=== PATIENT | female | born 1960 | race Caucasian/White ===

== ENCOUNTER 2023-11-02 05:49 | Inpatient (IN) | payer BC ==
[2023-10-27 09:24] LABS: Transitional Epithelial <5 /HPF (None Seen); Urine Bacteria None Seen /HPF (<20); Urine Bilirubin NEGATIVE (Negative); Urine Blood Negative (Negative); Urine Clarity Clear (Clear); Urine Color Yellow (Yellow); Urine Glucose NEGATIVE (Negative); Urine Mucus Slight /HPF (None Seen); Urine Protein TRACE (Negative); Urine RBC <5 /HPF (None Seen); Urine Urobilinogen 1+ (Normal)
[2023-10-27 09:24] LABS: Absolute Lymphocytes (CBC) 1.2 K/uL (0.7-4.9); Hematocrit 41.4 % (36.0-45.0); Lymphocytes % 22.1 % (15.3-44.8); MCV 92.8 fL (80-100); MPV 8.6 fL (7.6-11.3); Platelets 308 thou/uL (152-406); RBC Red Blood Cell Count 4.46 M/uL (3.86-4.86)
--- NOTE | 2023-10-27 09:33 | RAD REPORT ---
EXAM DESCRIPTION: RAD - Chest Pa And Lat (2 Views) - 10/27/2023 9:22 am CLINICAL HISTORY: pre op for surgery. Hypertension COMPARISON: CHEST SINGLE VIEW dated 09/13/2015; CHEST PA AND LAT 2 VIEW dated 07/17/2011; CHEST SINGLE VIEW dated 07/13/2010 TECHNIQUE: PA and lateral views of the chest were obtained. FINDINGS: The lungs are clear. Heart size is normal and central vasculature is within normal limits. No pleural effusion or pneumothorax seen. No acute bony finding noted. IMPRESSION: No acute cardiopulmonary process.
[2023-10-27 09:35] LABS: Protime INR 1.02
[2023-10-27 09:36] LABS: Albumin 3.4 g/dL (3.4-5.0); Bilirubin Total 0.5 mg/dL (0.2-1.0); Potassium 4.5 mEq/L (3.5-5.1); Protein, Total 6.8 g/dL (6.4-8.2)
--- NOTE | 2023-11-01 17:14 | EKG ---
Test Date: 2023-10-27 Test Time: 10:08:35 Forestry Extension Specialist: ELENITA MEASUREMENT RESULTS: Intervals: Rate: 57 AZ: 120 QRSD: 84 QT: 400 QTc: 389 [place]: P: 57 AZ: 120 QRS: 40 T: 25 INTERPRETIVE STATEMENTS: Sinus bradycardia Otherwise normal ECG Compared to ECG 07/09/2016 10:51:11 Sinus rhythm no longer present Electronically Signed On 11-01-23 16:58:03 ACID WASHER OPERATOR by Pablo Garner
[2023-11-02] MEDS ORDERED: CEFAZOLIN SODIUM 2 GM/VIAL ONE (06:08)
[2023-11-02] MEDS ORDERED: Oxycodone HCl/Acetaminophen 5/325 MG TAB ONE (06:09)
[2023-11-02] MEDS ORDERED: GABAPENTIN 100 MG CAP ONE (06:09)
[2023-11-02] MEDS ORDERED: ACETAMINOPHEN 500 MG TAB ONE (06:10)
[2023-11-02] MEDS ORDERED: Ringers Lactate 1,000 ML IV ONE ×3 (06:12→08:44)
[2023-11-02] MEDS ORDERED: CELECOXIB 100 MG CAPSULE ONE (06:12)
[2023-11-02] MEDS ORDERED: BUPIVACAINE 0.75% (PF) 2 ML SP ONE (06:31)
[2023-11-02] MEDS ORDERED: LIDOCAINE 2% MPF 5 ML VIAL ONE (06:42)
[2023-11-02] MEDS ORDERED: EPINEPHRINE 1 MG/ML VIAL ONE ×2 (06:42→08:34)
[2023-11-02] MEDS ORDERED: LIDOCAINE 1% MPF 5 ML VIAL ONE (06:42)
[2023-11-02] MEDS ORDERED: propofoL 200 MG/20 ML VIAL IV ONE ×2 (06:43→08:39)
[2023-11-02] MEDS ORDERED: FENTANYL CITR 100 MCG/2 ML ONE (06:43)
[2023-11-02] MEDS ORDERED: TRANEXAMIC ACID 1,000 MG/10 ML VIAL IV ONE (06:44)
[2023-11-02] MEDS ORDERED: MIDAZOLAM HCL 2 MG/2 ML INJ ONE (06:44)
[2023-11-02] MEDS ORDERED: ONDANSETRON 4 MG/2 ML VIAL ONE (06:59)
[2023-11-02] MEDS ORDERED: NS 0.9% VIAL 10 ML ONE ×3 (07:58→08:55)
[2023-11-02] MEDS ORDERED: dexAMETHasone 10 MG/ML VIAL ONE (08:34)
[2023-11-02] MEDS ORDERED: ROPIVACAINE HCL 20 ML ONE (08:44)
--- NOTE | 2023-11-02 09:09 | RAD REPORT ---
EXAM DESCRIPTION: RAD - Hip Left 1 View - 11/02/2023 8:56 am CLINICAL HISTORY: TOTAL HIP REPLACEMENT COMPARISON: Hip Left 2 View dated 02/23/2023; Hip Left 2 View dated 06/02/2018 FINDINGS/IMPRESSION: Single intraoperative left hip radiograph for a left hip replacement. The aceta bular component is intact. The femoral component is intact.
[2023-11-02] MEDS ORDERED: DOCUSATE NA 100 MG CAP PO PRN (09:24)
--- NOTE | 2023-11-02 09:30 | P.BOP ---
Preoperative diagnosis: left hip arthritis Postoperative diagnosis: same Primary procedure: left total hip arthoplasty Estimated blood loss: 100ccs Anesthesia: General Transferred to: Recovery Room Condition: Good
[2023-11-02 10:10] LABS: Hematocrit 34.7 % (36.0-45.0)
--- NOTE | 2023-11-02 10:15 | OP ---
Date of Procedure: 11/02/2023 Surgeon: Javy Fisher MD Preoperative Diagnosis: Left hip arthritis. Postoperative Diagnosis: Left hip arthritis. Procedure: Left total hip arthroplasty using the Albert system. Estimated Blood Loss: 100 cc. Complications: There were no complications. Indications For Operation: Ms. Gregory is a 63-year-old female, who unfortunately suffered with pa in and immobility of her right hip for some time. This persisted despite conservative care including assistive devices, medications, and risks, benefits, and alternatives of total hip arthroplasty have been discussed with her. She states she understands everything as presented as well as those risks which were outlined in the consent form as well as others which have been discussed and agrees to pro ceed. Description Of Procedure: The patient was taken to the operating room. She was given spinal by Mynor brink. Urinary catheter was placed. She was then rolled right side down with an axillary roll and appropriately positioned using hip positioners. After this, the left lower extremity was then preppe d and draped in usual sterile fashion for procedure. Following this, a standard posterior line incis ion was taken down carefully through skin and soft tissues. Meticulous hemostasis being maintained u sing the Bovie electrocautery. This leads down to the fascia. A small stab wound was made in the fa scia with palpation of the gluteal tendon to ensure that we were in the correct position. This was c arried up gently to near the tip of the greater trochanter, where the gluteus veronica muscles were en countered. These were then spread using finger pressure. The sciatic nerve was then palpated and pr otected as the Charnley was then placed. A hip was placed in the abductors and the external rotators and capsule were then taken down and tagged for later repair. The hip was found to have quite a bit of osteophytes and some of these were trimmed as the hip was dislocated. It has severe arthritic ch anges of the femoral head as well as reciprocal changes of the acetabulum. A standard neck cut or sl ightly lower than standard neck cut was then made and the head was then sized using ring gauges. Aft er this, attention was then turned to the acetabulum, where some of the osteophytes were removed as w ell as the labrum and any soft tissues from the acetabulum was then sequentially reamed to a size 49, where it appeared to have good bleeding bone on inspection. After this, the size [address] aced in standard fashion. It appeared to have excellent fixation of the bone with no sign of failure to adhere. Following this, attention was then turned to the femur and the canal finding reamer was placed, this followed by broaching to a size 6, and x-rays taken at this point, which demonstrates th e cup appears to be in good position and appears to be appropriately sized stem. After this, the bro ach was removed. The final stem was placed. The hip was then trialed using the standard ball. It w as very stable to flexion to over 90 degrees, full adduction, internal rotation to at least 45 to 50 degrees. It does come to full extension. There was slight amount of tension with hyperextension. H owever, at this point, I feel we will move forward with this. After this, the trial ball was removed . A liner has already been placed before trialing and the final ball was then gently tapped into peter ce. It was then reduced and appears to be stable in same areas. Copious irrigation using jet lavage was used and the external rotators capsule was then repaired back to the trochanter and soft tissues via bone tunnel and soft tissue fixation. After this, it was again irrigated and the fascia was roque sed in a watertight fashion using heavy Vicryl sutures followed by irrigation followed by closure wit h Vicryl sutures followed by parker. The patient was then placed in Aquacel dressing and taken to r ecovery room in good condition. There were no complications. SE/MODL Voice ID: [id number] Report ID: [id number]
--- OUTSIDE RECORDS SUMMARY | 2023-11-02 10:29 | XMS REPORT | Continuity of Care Document ---
Author Name Unknown Address [address] [place] [address] [facility] thconnect Address [address] [facility] [place] [address] Care Team Providers Care Power Grader Operator Name Role Phone Daquan Lilly Primary Care Physician [id number] [phone] Brisa Hoang Attending Clinician Unavailable ABI CARLSON Attending Clinician Unavailable Abi Elias Attending Clinician [phone] Doctor Unassigned, [place] Attending Clinician U navailable Vik INSULATION HELPERSpencer Solomon Attending Clinician [phone] Brisa Hoang Admitting Clinician Unavailable Payers Payer Name Policy Type Policy Number Effective Date Expirati on Date Source Problems Condition Name Condition Details Condition Category Status Onset Date Resolution Date Last Treatment Date Treating Clinician Comments Source Constipati on, unspecifie d constipati on type Constipati on, unspecifie d constipati on type Problem Active [facility] Circulatio n problem Circulatio n problem Problem Active [facility] Gallstones Gallstones Problem Active C om[facility] Pure hyperchole sterolemia Pure hyperchole sterolemia Problem Active [facility] Depression with anxiety Depression with anxiety Problem Active [facility] Varicose veins of bilateral lower extremitie s with pain Varicose veins of bilateral lower extremitie s with pain Problem Active [facility] Primary osteoarthr itis involving multiple joints Primary osteoarthr itis involving multiple joints Problem Active [facility] Panic attacks Panic attacks Problem Active [facility] Hip pain, left Hip pain, left Problem Active [facility] No known active problems No known active problems Disease [facility] Allergies, Adverse Reactions, Alerts Allergy Name Allergy Type Status Severity Reaction(s) Onset Date Inactive Date Treating Clinician Comments Source red dye Adverse Reaction Active Info Not Available [facility] NO KNOWN ALLERGIE S Drug Class Active [facility] Social History Social Habit Start Date Stop Date Quantity Comments Source Tobacco use and exposure 2021-07-17 00:00:00 2021-07-17 00:00:00 Smokeless tobacco non-user [facility] Sex Assigned At 1960 00:00:00 1960 00:00:00 [facility] Smoking Status Start Date Stop Date Source Never smoked tobacco [facility] Medications Ordered Medication Name Filled Medication Name Start Date Stop Date Current Medication? Ordering Clinician Indication Dosage Frequency Signature (SIG) Comments Components Source TAKE 5 ML BY MOUTH EVERY 6 HOURS NEEDED FOR COUGH FOR UP TO 7 DAYS 2021-10 00:00: 00 No nirmatrelvi r-ritonavir (PAXLOVID, EUA,) 150 mg x 2- 100 mg tablet 05-24 00:00: 00 Yes [id number] 3{tbl} Take 3 tablets by mouth in the morning and 3 tablets in the evening. [facility] nirmatrelvi r-ritonavir (PAXLOVID, EUA,) 150 mg x 2- 100 mg tablet 05-24 00:00: 00 Yes [id number] 3{tbl} Take 3 tablets by mouth in the morning and 3 tablets in the evening. [facility] codeine-gua ifenesin 10-100 mg/5 mL oral solution 05-24 00:00: 00 06-01 04:59 :00 No [id number] 5mL Take 5 mL by mouth every 6 (six) hours as needed for Cough for up to 7 days. Indication s: acute pain [facility] mupirocin 2 % ointment 2020-10 0 00:00: 00 Yes [id number] Apply to area(s) 3 (three) times daily. [facility] mupirocin 2 % ointment 2020-10 0 00:00: 00 Yes [id number] Apply to area(s) 3 (three) times daily. [facility] mupirocin 2 % ointment 2020-10 0 00:00: 00 Yes [id number] Apply to area(s) 3 (three) times daily. [facility] cephALEXin (KEFLEX) 500 mg capsule 2020-10 0 00:00: 00 07-28 04:59 :00 No [id number] 500mg Take 1 capsule by mouth 4 (four) times daily for 10 days. [facility] Prozac Prozac 05-16 00:00: 00 Yes Na Lopez 1 capsule [facility] Sly Heart Yes Na Lopez 1 tablet with food or milk as needed [facility] Vital Signs Vital Name Observation Time Observation Value Comments S ource Systolic blood pressure 2022-05-24 14:58:00 103 mm[Hg] [facility] Diastolic blood pressure 2022-05-24 14:58:00 77 mm[Hg] [facility] Heart rate 2022-05-24 14:58:00 94 /min [facility] Body temperature 2022-05-24 14:58:00 37 Betty [facility] Respiratory rate 2022-05-24 14:58:00 16 /min [facility] Body height 2022-05-24 14:58:00 165.1 cm [facility] Body weight 2022-05-24 14:58:00 73.528 kg [facility] BMI 2022-05-24 14:58:00 26.97 kg/m2 [facility] Oxygen saturation in Arterial blood by Pulse oximetry 2022-05-24 14:58:00 99 /min [facility] Systolic blood pressure 2021-07-17 23:45:00 114 mm[Hg] [facility] Diastolic blood pressure 2021-07-17 23:45:00 78 mm[Hg] [facility] Heart rate 2021-07-17 23:45:00 78 /min [facility] Body temperature 2021-07-17 23:45:00 37.22 Betty [facility] Respiratory rate 2021-07-17 23:45:00 18 /min [facility] Body height 2021-07-17 23:45:00 165.1 cm [facility] Body weight 2021-07-17 23:45:00 72.576 kg [facility] BMI 2021-07-17 23:45:00 26.63 kg/m2 [facility] Oxygen saturation in Arterial blood by Pulse oximetry 2021-07-17 23:45:00 97 /min [facility] Respiratory Rate 2022-09-14 14:27:00 24.00 /min BP Systolic 2022-09-14 14:27:00 116 mm[Hg] BP Diastolic 2022-09-14 14:27:00 75 mm[Hg] Weight Measured 2022-09-14 14:27:00 155.80 pounds Height Measured 2022-09-14 14:27:00 65.00 inches Body Temperature 2022-09-14 14:27:00 97.60 degrees Heart Rate 2022-09-14 14:27:00 85.00 /min Procedures Procedure Date / Time Performed Performing Clinician Source POCT SARS-COV-2 ANTIGEN (BINAX NOW) 2022-05-24 14:57:00 Abi Carlson [facility] STATEMENT OF PATIENT FINANCIAL RESPONSIBILITY 2022-05-24 05:01:00 Doctor Unassigned, [place] [facility] Plan of Care Planned Activity Planned Date Details Comments Source Goal Plan of Care Note [code = 80033-4] Goal Plan of Care Note [code = 97355-0] Encounters Start Date/Time End Date/Time Encounter Type Admission Type Attending Clinicians Care Facility Care Department Encounter ID Source 2023-10-18 13:59:00 Outpatient Brisa Hoang [facility] [id number] [facility] 2023-10-13 11:24:00 Outpatient Brisa Hoang [facility] [id number] [facility] 2023-09-08 10:01:00 Outpatient Brisa Hoang [facility] [id number] [facility] 2022-09-28 08:40:07 2022-09-28 08:40:07 Outpatient [facility] [id number] Adarsh Boone 2022-09-14 14:18:09 2022-09-14 14:18:09 Outpatient [facility] [id number] Adarsh Boone 2022-09-14 00:00:00 2022-09-14 00:00:00 Outpatient Visit [id number] 2022-05-24 09:40:00 2022-05-24 10:27:48 Outpatient R ROBYN [facility] [id number] [facility] 2022-05-24 09:40:00 2022-05-24 10:27:48 Urgent Care [facility] [id number] [facility] 2022-05-24 00:00:00 2022-05-24 00:00:00 Orders Only Doctor Unassigned, [place] [facility] [id number] [facility] 2021-07-17 18:36:59 2021-07-17 19:05:29 [facility] [id number] [facility] 2021-07-17 18:40:00 2021-07-17 18:40:00 Outpatient ABI CEVALLOS [facility] [id number] [facility] 2018-06-08 08:10:00 2018-06-08 08:10:00 Outpatient [facility] [id number] [facility] 2018-06-03 08:07:00 2018-06-03 08:07:00 Outpatient [facility] [id number] [facility] 2018-05-16 10:00:00 2018-05-16 10:00:00 Outpatient [facility] [id number] [facility] Results Test Description Test Time Test Comments Results Result Co mments Source [facility]
--- NOTE | 2023-11-02 15:34 | P.CNS ---
Date of Consult: 11/02/23 Reason for Consult: medical management Chief Complaint: left hip arthritis History of Present Illness: Serafin Gregory is a 63-year-old female with past medical history of hypotension, anxiety/depression, HLD, osteoporosis who was brought into the hospital for a left total hip replacement. She underwent a Left total hip replacement today on 11/02/23. Orthopedics physician has consulted hospitalist service for medical management. Status post left total hip replacement, she has had a hypotensive episode with near syncope when standing with physical therapy around 1500 today. Blood pressure 71/54 with recheck 95/53 this is reportedly the first time for her to stand since surgery this morning. She reports being hypotensive regularly. Will give 250 mL normal saline bolus and recheck her blood pressure. Allergies red dye Allergy (Verified 10/27/23 08:51) Nausea/Vomiting Home Medications: Acetaminophen 500 mg PO QID 10/27/23 Acetaminophen with Codeine [Acetaminophen-Cod #2 Tablet] 1 each PO QID PRN 10/27/23 Alendronate Sodium 70 mg PO DAILY 10/27/23 Calcium Carbonate [Calcium] 600 mg PO BID 10/27/23 Diclofenac Na [Voltaren D.R] 75 mg PO DAILY 10/27/23 Ezetimibe 10 mg PO DAILY 10/27/23 Fluoxetine HCl [Prozac] 40 mg PO DAILY 10/27/23 Ibuprofen 200 mg PO TID 10/27/23 - Social History Alcohol use: Yes CD- Drugs: No Caffeine use: Yes Place of Residence: Home Review of Systems Musculoskeletal: Leg Pain (Left total hip replacement) Integumentary: Other (incision to left hip) Physical Examination Temp Pulse Resp BP Pulse Ox 97.8 F 54 16 95/53 L 98 11/02/23 11:53 11/02/23 11:53 11/02/23 11:53 11/02/23 11:53 11/02/23 11:53 General: Alert, In no apparent distress, Oriented x3 HEENT: Atraumatic, Normocephalic, PERRLA Neck: Supple, 2+ carotid pulse no bruit, JVD not distended Respiratory: Clear to auscultation bilaterally, Normal air movement Cardiovascular: No edema, Normal pulses, Regular rate/rhythm, Normal S1 S2 Capillary refill: <2 Seconds Gastrointestinal: Normal bowel sounds, Soft and benign, Non-distended Musculoskeletal: Tenderness (left hip), Other (dressing to left hip (C/D/I)) Neurological: Normal speech, Normal strength at 5/5 x4 extr, Normal tone Laboratory Data (last 24 hrs) 11/02/23 10:01 Hgb 12.1 Hct 34.7 L Conclusions/Impression: Assessment and plan Status post left total hip replacement Hypotensive with near syncopal episode Orthopedic surgeon managing, Dr. Fisher Pain control Physical therapy BP 71/54, recheck 95/53 250 ml normal saline bolus- continue to monitor Hypotension Anxiety/depression Osteoporosis Supportive care Continue home medication DVT PPx per orthopedics Full code LOS 2 to 3 days, per orthopedics Time Spent Managing Pts care (In Minutes): 35
[2023-11-02 15:59] VITALS: BMI 26.1
[2023-11-02] MEDS: CEFAZOLIN 1 GM in NA CHLORIDE 0.9% 50 ML IVPB SCH (17:44)
[2023-11-02] MEDS: HYDROCODONE/APAP 7.5/325 MG TAB PO PRN (20:55)
[2023-11-03] MEDS: CEFAZOLIN 1 GM in NA CHLORIDE 0.9% 50 ML IVPB SCH ×2 (00:41→08:36)
[2023-11-03] MEDS: NA CHLORIDE 0.9% 250 ML IV PRN ×2 (04:27→05:03)
[2023-11-03 05:53] LABS: Hematocrit 31.7 % (36.0-45.0)
[2023-11-03] MEDS: ENOXAPARIN 40 MG/0.4 ML SQ SCH (08:36)
[2023-11-03] MEDS: HYDROCODONE/APAP 7.5/325 MG TAB PO PRN ×2 (08:50→14:53)
[2023-11-03 08:51] LABS: Potassium 4.3 mEq/L (3.5-5.1)
[2023-11-03] MEDS ORDERED: NA CHLORIDE 0.9% 1,000 ML IV ONE (08:52)
[2023-11-03] MEDS: NA CHLORIDE 0.9% 1,000 ML IV SCH ×2 (09:49→20:19)
--- NOTE | 2023-11-03 11:38 | P.PN ---
Date of Service: 11/03/23 Subjective She is experiencing continued orthostatic hypotension. Giving IV fluids She reports asymptomatic hypotension regularly, the symptom of dizziness is new We will continue to monitor ROS 10 point ROS as noted above, otherwise negative Physical Exam General: AAOx3, NAD HEENT: Atraumatic, Normocephalic, PERRLA Neck: Supple, 2+ carotid pulse no bruit, JVD not distended Respiratory: Clear to auscultation bilaterally, Normal air movement, symmetrical chest wall movement Cardiovascular: No edema, Normal pulses, Regular rate/rhythm, Normal S1 S2, no murmur appreciated Capillary refill: <2 Seconds Gastrointestinal: Normal bowel sounds, Soft and benign, Non-distended, nontender Musculoskeletal: Tenderness (left hip), Other (dressing to left hip (C/D/I)) Neurological: Normal speech, Normal strength at 5/5 x4 extr, Normal tone Vitals Reviewed Problem list Status post left total hip replacement Hypotensive with near syncopal episode Hypotension Anxiety/depression Osteoporosis Assessment and Plan Status post left total hip replacement Hypotensive with near syncopal episode Orthopedic surgeon managing, Dr. Fisher- cleared for discharge when hemodynamically stable Discharge instructions: -Ok to d/c if ok with hospitalist,PT, social work. -Posterior hip precautions. WBAT with walker. Has rx sent electronically for pain and anticoagulation. F/U 2 weeks or sooner with problems. Pain control Physical therapy BP 71/54, recheck 95/53 (11/02) symptomatic Hypotension OVN (11/03) H/H 11.2/31.7 stopped 250 ml normal saline bolus- continue to monitor 1000 ml NS x 2 Hypotension Anxiety/depression Osteoporosis Supportive care Continue home medication DVT PPx per orthopedics- started lovenox 11/03/23 Full code LOS 2 to 3 days
[2023-11-03] MEDS: MIDODRINE HCL 5 MG TABLET PO SCH ×2 (16:37→20:18)
[2023-11-03 21:57] VITALS: O2SAT 99
[2023-11-04] MEDS: HYDROCODONE/APAP 7.5/325 MG TAB PO PRN ×4 (04:43→23:21)
[2023-11-04] MEDS: NA CHLORIDE 0.9% 1,000 ML IV SCH (04:45)
[2023-11-04 06:07] LABS: Hematocrit 25.5 % (36.0-45.0)
[2023-11-04] MEDS: ENOXAPARIN 40 MG/0.4 ML SQ SCH (07:52)
[2023-11-04] MEDS: MIDODRINE HCL 5 MG TABLET PO SCH ×3 (07:52→20:08)
--- NOTE | 2023-11-04 10:23 | P.PN ---
Date of Service: 11/04/23 Subjective No new complaints Still hypotensive overnight Febrile this morning. continue monitoring ROS 10 point ROS as noted above, otherwise negative Physical Exam General: AAOx3, NAD, weak HEENT: Atraumatic, Normocephalic, PERRLA Neck: Supple, 2+ carotid pulse no bruit, JVD not distended Respiratory: Clear to auscultation bilaterally, Normal air movement on RA, symmetrical chest wall movement Cardiovascular: No edema, Regular rate/rhythm, Normal S1 S2, no murmur appreciated Capillary refill: <2 Seconds Gastrointestinal: + BS, Soft and benign, Non-distended, nontender Musculoskeletal: Tenderness (left hip), Other (dressing to left hip (C/D/I)) Neurological: Normal speech, Weak from hypotension, Normal tone Vitals Reviewed Problem list Status post left total hip replacement Hypotensive with near syncopal episode Chronic Hypotension Anxiety/depression Osteoporosis Assessment and Plan Status post left total hip replacement Hypotensive with near syncopal episode Febrile Orthopedic surgeon managing, Dr. Fisher- cleared for discharge when hemodynamically stable Discharge instructions: -Ok to d/c if ok with hospitalist,PT, social work. -Posterior hip precautions. WBAT with walker. Has rx sent electronically for pain and anticoagulation. F/U 2 weeks or sooner with problems. Pain control Physical therapy- when she feels able BP 71/54, recheck 95/53 (11/02) symptomatic Hypotension OVN (11/04) hgb 9.6 from 11 Midodrine TID scheduled Lactic 1.3, WBC 8.2, blood cultures and UA sent, 2 liters NS, rocephin Hypotension Anxiety/depression Osteoporosis Supportive care Continue home medication DVT PPx per orthopedics- started lovenox 11/03/23 Full code LOS 2 to 3 days
[2023-11-04] MEDS ORDERED: ACETAMINOPHEN 325 MG TABLET PO PRN (10:50)
[2023-11-04] MEDS: CEFTRIAXONE 1,000 MG in NA CHLORIDE 0.9% 50 ML IVPB SCH ×2 (11:52→20:07)
[2023-11-04] MEDS ORDERED: NA CHLORIDE 0.9% 1,000 ML IV SCH (12:00)
[2023-11-04 12:09] LABS: Absolute Lymphocytes (CBC) 1.7 K/uL (0.7-4.9); Hematocrit 27.1 % (36.0-45.0); Lymphocytes % 20.3 % (15.3-44.8); MCV 92.3 fL (80-100); MPV 8.9 fL (7.6-11.3); Platelets 204 thou/uL (152-406); RBC Red Blood Cell Count 2.94 M/uL (3.86-4.86)
[2023-11-04] MEDS: FLUOXETINE 20 MG CAP PO SCH (13:38)
[2023-11-05 06:13] LABS: Hematocrit 25.4 % (36.0-45.0)
[2023-11-05] MEDS: HYDROCODONE/APAP 7.5/325 MG TAB PO PRN ×2 (07:14→12:52)
--- NOTE | 2023-11-05 08:03 | ECHO ---
HEIGHT: 5 ft 5 in WEIGHT: 157 lb 0 oz DATE OF STUDY: 11/04/[address]: Ziggy Fernandez MD 2-DIMENSIONAL: YES M.MODE: YES DOPPLER: YES COLOR FLOW: YES TDS: NO PORTABLE: YES DEFINITY: NO BUBBLE STUDY: NO DIAGNOSIS: HYPOTENSION CARDIAC HISTORY: CATHERIZATION: NO SURGERY: NO PROSTHETIC VALVE: NO PACEMAKER: NO MEASUREMENTS (cm) DIASTOLIC (NORMALS) SYSTOLIC (NORMALS) IVSd 1.1 (0.6-1.2) LA Diam 3.1 (1.9-4.0) LVEF 55-60% LVIDd 4.5 (3.5-5.7) LVIDs 3.3 (2.0-3.5) %FS 26% LVPWd 1.1 (0.6-1.2) Ao Diam 2.8 (2.0-3.7) 2 DIMENSIONAL ASSESSMENT: RIGHT ATRIUM: NORMAL LEFT ATRIUM: NORMAL RIGHT VENTRICLE: NORMAL LEFT VENTRICLE: NORMAL TRICUSPID VALVE: MILD TRICUSPID REGURGITATION MITRAL VALVE: MILD MITRAL REGURGITATION PULMONIC VALVE: NORMAL AORTIC VALVE: NORMAL PERICARDIAL EFFUSION: NONE AORTIC ROOT: NORMAL LEFT VENTRICULAR WALL MOTION: NORMAL. DOPPLER/COLOR FLOW: SEE BELOW. COMMENTS: 1. NORMAL LEFT VENTRICULAR EJECTION FRACTION 55-60% 2. NORMAL WALL MOTION 3. NORMAL DIASTOLIC FUNCTION 4. MILD TRICUSPID REGURGITATION 5. MILD MITRAL REGURGITATION TECHNOLOGIST: HADLEY ESPARZA
[2023-11-05] MEDS: FLUOXETINE 20 MG CAP PO SCH (09:52)
[2023-11-05] MEDS: MIDODRINE HCL 5 MG TABLET PO SCH ×2 (09:52→12:53)
[2023-11-05] MEDS: ENOXAPARIN 40 MG/0.4 ML SQ SCH (09:53)
[2023-11-05] MEDS: CEFTRIAXONE 1,000 MG in NA CHLORIDE 0.9% 50 ML IVPB SCH (09:53)
[2023-11-05 14:11] VITALS: BP 94/55; TEMP 99.2
--- NOTE | 2023-11-05 14:11 | P.DS ---
Admission Date: 11/03/23 Discharge Date: 11/05/23 Disposition: [facility] HOME/HOME HEALTH CARE Discharge Condition: FAIR Reason for Admission: left hip arthritis Brief History of Present Illness: Diagnosis: Status post left total hip replacement Hypotensive with near syncopal episode Chronic Hypotension Anxiety/depression Osteoporosis HPI 11/02/23 Serafin Gregory is a 63-year-old female with past medical history of hypotension, anxiety/depression, HLD, osteoporosis who was brought into the hospital for a left total hip replacement. She underwent a Left total hip replacement today on 11/02/23. Orthopedics physician has consulted hospitalist service for medical management. Status post left total hip replacement, she has had a hypotensive episode with near syncope when standing with physical therapy around 1500 today. Blood pressure 71/54 with recheck 95/53 this is reportedly the first time for her to stand since surgery this morning. She reports being hypotensive regularly. Will give 250 mL normal saline bolus and recheck her blood pressure. Hospital Course: Serafin Gregory is a pleasant 63 year old female with a past medical history significant for [text] who was admitted to the [facility] on 11/02/23 for Left total hip procedure. Serafin Montemayor was scheduled for a left total hip procedure with Dr. Fisher on 11/02/2023. Hospitalist service was consulted for medical management. Status post procedure, she became hypotensive with near syncopal episode when standing with physical therapy. Blood pressure has become stable with scheduled midodrine and IV fluids. She became febrile 11/04/2023, labs were drawn antibiotics are given. Culture resulted negative. On 11/05/23, Serafin was seen on morning rounds and deemed medically stable for discharge with home health PT. Serafin was discharged with instructions to schedule follow-up appointments with Dr. Fisher and PCP. Serafin was provided prescriptions for Midodrine, hydrocodone, and anticoagulant. The patient and family members were given the opportunity to ask questions and reported no further questions. Furthermore, all questions were answered to the best of my ability. A copy of this discharge summary will be sent to the above providers to facilitate continuity of care. Today, I personally spent 50 minutes with Serafin, of which greater than 50% of the time was spent in patient education, counseling, and coordination of care as described above. Physical Exam General: AAOx3, NAD, weak HEENT: Atraumatic, Normocephalic, PERRLA Neck: Supple, 2+ carotid pulse no bruit, JVD not distended Respiratory: Clear to auscultation bilaterally, Normal air movement on RA, sy mmetrical chest wall movement Cardiovascular: No edema, Regular rate/rhythm, Normal S1 S2, no murmur appreciated Capillary refill: <2 Seconds Gastrointestinal: + BS, Soft and benign, Non-distended, nontender Musculoskeletal: Tenderness (left hip), Other (dressing to left hip (C/D/I)) Neurological: Normal speech, Weak from hypotension, Normal tone Vital Signs/Physical Exam: Temp Pulse Resp BP Pulse Ox 99.2 F 84 18 94/55 L 98 11/05/23 12:00 11/05/23 12:00 11/05/23 12:52 11/05/23 12:00 11/05/23 12:52 Laboratory Data at Discharge: WBC 8.20 thou/uL (4.3-10.9) 11/04/23 11:59 Hgb 8.8 g/dL (12.0-15.0) L D 11/05/23 05:42 Hct 25.4 % (36.0-45.0) L 11/05/23 05:42 Plt Count 204 thou/uL (152-406) 11/04/23 11:59 PT 11.2 SECONDS (9.5-12.5) 10/27/23 09:01 INR 1.02 10/27/23 09:01 APTT 36.2 SECONDS (24.3-36.9) 10/27/23 09:01 Sodium 140 mEq/L (136-145) 11/03/23 05:27 Potassium 4.3 mEq/L (3.5-5.1) 11/03/23 05:27 BUN 15 mg/dL (7-18) 11/03/23 05:27 Creatinine 0.89 mg/dL (0.55-1.02) 11/03/23 05:27 Glucose 169 mg/dL (74-106) H 11/03/23 05:27 Total Bilirubin 0.5 mg/dL (0.2-1.0) 10/27/23 09:01 AST 19 U/L (15-37) 10/27/23 09:01 ALT 30 U/L (13-56) 10/27/23 09:01 Alkaline Phosphatase 79 U/L (45-117) 10/27/23 09:01 Home Medications: Alendronate Sodium 70 mg PO DAILY 10/27/23 Calcium Carbonate [Calcium] 600 mg PO BID 10/27/23 Diclofenac Na [Voltaren D.r*] 75 mg PO DAILY 10/27/23 Ezetimibe 10 mg PO DAILY 10/27/23 Fluoxetine HCl [Prozac] 40 mg PO DAILY 10/27/23 Midodrine HCl [Proamatine*] 5 mg PO TID 30 Days #90 tab 11/05/23 New Medications: Midodrine HCl [Proamatine*] 5 mg PO TID 30 Days #90 tab Physician Discharge Instructions: Serafin Montemayor was scheduled for a left total hip procedure with Dr. Fisher on 11/02/2023. Hospitalist service was consulted for medical management. Status post procedure, she became hypotensive with near syncopal episode when standing with physical therapy around 3 PM. Blood pressure has become stable with scheduled midodrine and IV fluids. [facility] [phone] fax [phone] 1. Please call and schedule a follow-up appointment with your PCP in 3-5 days - Please follow-up with your PCP for medication refills/adjustments -Continue midodrine 3 times a day until follow-up with your PCP for further treatment plan 2. Please call and schedule a follow-up appointment with Dr. Fisher in 2 weeks or sooner with problems Discharge instructions: -Posterior hip precautions. Walk with walker. Has rx sent electronically for pain and anticoagulation. F/U 2 weeks or sooner with problems. 3. Continue regular diet 4. Return to ED if blood pressure drops New medications Midodrine 10 mg p.o. 3 times daily x 7 days, then midodrine 10 mg p.o. 3 times a day as needed Pain medication and anticoagulant ordered by Dr. Fisher Diet: ADA Activity: Fall precautions Followup: Javy Fisher MD [ACTIVE - CAN ADMIT] - (Please call office to confirm follow-up appointment.) Brisa Hoang FNP [Primary Care Provider] - 2-3 Days (3-5 DAYs follow up ) Time spent managing pt's care (in minutes): 50
== END 2023-11-05 14:00 | disposition home health service (06) | DRG 470 ==
LOC: OR 05:49 → 2ND 10:25 → OBSVTOIN 11-03 17:31
PROVIDERS: ADMIT Orthopaedic Surgery; ATTEND Orthopaedic Surgery
PROC: 0SRB0JZ Replacement of Left Hip Joint with Synthetic Substitute, Open Approach (ICD-10-PCS; principal; 2023-11-02 07:00)
DX: M16.12 Unilateral primary osteoarthritis, left hip (principal); E78.5 Hyperlipidemia, unspecified; F41.9 Anxiety disorder, unspecified; F32.A Depression, unspecified; M81.0 Age-related osteoporosis without current pathological fracture; I95.1 Orthostatic hypotension; Z79.899 Other long term (current) drug therapy
CPT/HCPCS: 36415; 71046; 80048; 80053; 81001; 82947; 83605; 85014; 85018; 85025; 85610; 85730; 87040; 87086; 87088; 88304; 88311; 93005; 93306; 94010; 97110; 97112; 97116; 97163; 97530; A4216; C1776; G0378; G0379; J0171; J0690; J0696; J1100; J1650; J2001; J2250; J2405; J2704; J3010; J7030; J7050; J7120